=== PATIENT | female | born 2000 | race Caucasian/White ===

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

== ENCOUNTER 2024-01-20 15:55 | Emergency (ER) | payer BC, OTHER ==
[2024-01-20 16:08] VITALS: BP 131/81; PULSE 91
== END 2024-01-20 16:48 | disposition home or self-care (01) ==
LOC: FB.ED 15:55
DX: S01.81XA Laceration without foreign body of other part of head, initial encounter (principal); S16.1XXA Strain of muscle, fascia and tendon at neck level, initial encounter; V47.5XXA Car driver injured in collision with fixed or stationary object in traffic accident, initial encounter
CPT/HCPCS: 12011; 99283